=== PATIENT | male | born 1995 ===

== ENCOUNTER 2023-11-28 00:15 | Emergency (ER) | payer SELFPAY ==
[~2023-11-28] VITALS: Ht 180.3 cm; Wt 102.0 kg
[2023-11-28 03:04] VITALS: BP 119/65; TEMP 97.6; O2SAT 97
== END 2023-11-28 05:14 | disposition left against medical advice (07) ==
LOC: M ED 00:15
DX: Z53.21 Procedure and treatment not carried out due to patient leaving prior to being seen by health care provider (principal)